=== PATIENT | male | born 1980 | race Caucasian/White ===

== ENCOUNTER 2017-03-31 11:29 | Emergency (ER) | payer OTHER ==
[2017-03-31 12:45] LABS: HEMOGLOBIN 15.3 gm/dl (14.0-17.5); RED BLOOD COUNT 4.93 M/UL (4.20-5.50); WHITE BLOOD COUNT 13.7 K/UL (4.5-11.0)
[2017-03-31 13:14] LABS: BUN/CREATININE RATIO 14 (0-10)
== END 2017-03-31 19:20 | disposition home or self-care (01) ==
LOC: ER1 11:29
PROVIDERS: Emergency Medicine
DX: J40 Bronchitis, not specified as acute or chronic (principal); I16.0 Hypertensive urgency
CPT/HCPCS: 36415; 71010; 80053; 82550; 82553; 83735; 83874; 83880; 84484; 85025; 85379; 93005; 94640; 94664; 96361; 96374; 99284; J2930; J7030